=== PATIENT | female | born 1975 | race American Indian/Alaskan Native ===

== ENCOUNTER 2017-09-17 11:15 | Emergency (ER) | payer OTHER ==
[~2017-09-17] VITALS: Ht 149.9 cm; Wt 74.8 kg
[2017-09-17 11:15] VITALS: BP_SYST 146
[2017-09-17] MEDS ORDERED: LIDOCAINE VISCOUS 2%, 15 ML UDC MM ONE (12:00)
[2017-09-17] MEDS ORDERED: PREDNISONE 20 MG TABLET PO ONE (12:15)
[2017-09-17 12:20] VITALS: BP_SYST 128
== END 2017-09-17 12:20 | disposition home or self-care (01) ==
LOC: SED 11:15
DX: J02.8 Acute pharyngitis due to other specified organisms (principal); B97.89 Other viral agents as the cause of diseases classified elsewhere; Z91.040 Latex allergy status
CPT/HCPCS: 36415; 86403; 87081; 99284; J2001; J7512

== ENCOUNTER 2018-07-31 19:46 | Emergency (ER) | payer OTHER ==
[~2018-07-31] VITALS: Ht 152.4 cm; Wt 77.1 kg
[2018-07-31 19:55] VITALS: BP_SYST 138
--- NOTE | 2018-07-31 20:12 | NUR ---
Patient to ER bed 07 to gown for evaluation. Side rails up.
--- NOTE | 2018-07-31 20:14 | NUR ---
Pt AAOx4 ambulated into ED c/o 08/01 acute L pelvic pain radiating to L flank with nausea, cramps, and lightheadedness today. Pt denies taking medication today. Pain is exacerbated when sitting or lying. Pt denies vomiting/diarrhea/dysuria. No other injuries/complaints per pt/noted. Will continue to monitor.
[2018-07-31 20:18] LABS: BILIRUBIN,URINE NEGATIVE (NEGATIVE); BLOOD, URINE NEGATIVE (NEGATIVE); CLARITY/URINE SL CLOUDY (CLEAR); COLOR,URINE YELLOW (YELLOW); GLUCOSE,URINE NEGATIVE (NEGATIVE); KETONES,URINE NEGATIVE (NEGATIVE); LEUKOCYTE ESTERASE ,URINE NEGATIVE (NEGATIVE); NITRITE, URINE NEGATIVE (NEGATIVE); PROTEIN URINE NEGATIVE (NEGATIVE)
[2018-07-31] MEDS ORDERED: NACL 0.9% 1,000 ML IV ONE (20:39)
[2018-07-31] MEDS ORDERED: KETOROLAC TROMETHAMINE 30 MG VIAL IVP ONE (20:45)
[2018-07-31] MEDS ORDERED: ONDANSETRON HCL 4 MG/2 ML VIAL IVP ONE (20:45)
[2018-07-31] MEDS ORDERED: MORPHINE SULFATE 10 MG/ML VIAL IVP ONE (20:45)
--- NOTE | 2018-07-31 21:00 | NUR ---
Medication administered. Pt tolerated well. No adverse reactions noted.
[2018-07-31 21:09] LABS: BASOPHILS # (AUTO) 0.1 K/uL (0.0-0.2); BASOPHILS % (AUTO) 1.2 % (0.0-2.0); EOSINOPHILS # (AUTO) 0.3 K/uL (0.0-0.4); EOSINOPHILS % (AUTO) 3.3 % (0.0-4.0); HEMATOCRIT 46.7 % (36-48); HEMOGLOBIN 14.7 g/dL (12.0-16.0); LYMPHOCYTES # (AUTO) 2.4 K/uL (1.0-5.5); LYMPHOCYTES % (AUTO) 28.2 % (20.5-51.5); MEAN CORPUSCULAR HEMOGLOBIN 29 pg (27-31); MEAN CORPUSCULAR HGB CONC 32 % (32-36); MEAN CORPUSCULAR VOLUME 92 fL (79.0-98.0); MONOCYTES # (AUTO) 0.4 K/uL (0.0-1.0); MONOCYTES % (AUTO) 4.8 % (1.7-9.3); NEUTROPHILS # (AUTO) 5.2 K/uL (1.8-7.7); NEUTROPHILS % (AUTO) 62.5 % (40.0-70.0); PLATELET COUNT (AUTO) 394 K/uL (130-430); RED BLOOD CELL COUNT(AUTO) 5.07 MIL/uL (4.2-6.2); WHITE BLOOD COUNT (AUTO) 8.4 K/uL (4.8-10.8)
[2018-07-31 21:22] LABS: CALCIUM 9.4 mg/dL (8.4-11.0); CREATININE 0.77 mg/dL (0.55-1.30); POTASSIUM 4.1 mmol/L (3.5-5.1)
[2018-07-31 21:27] LABS: ALBUMIN 4.2 g/dL (3.4-4.8); TOTAL BILIRUBIN 0.4 mg/dL (0.0-1.0)
--- NOTE | 2018-07-31 21:29 | NUR ---
Pt returned from radiology via [facility] in stable condition
--- NOTE | 2018-07-31 22:20 | NUR ---
Pt reports 8/10 pain to suprapubic area. Dr. Valdivia notified. Orders to be received.
[2018-07-31] MEDS ORDERED: fentaNYL CITRATE/PF 100 MCG/2 ML AMP IVP ONE (22:30)
--- NOTE | 2018-07-31 22:30 | NUR ---
Fentanyl 100 mcg IVP administered. Pt tolerated well. No adverse reactions noted.
--- NOTE | 2018-07-31 22:42 | NUR ---
Pt taken to radiology via gurney in stable condition
--- NOTE | 2018-07-31 23:00 | NUR ---
Pt returned from radiology via wheelchair in stable condition
--- NOTE | 2018-07-31 23:29 | NUR ---
Pt resting comfortably in bed with no signs of distress.
--- NOTE | 2018-07-31 23:54 | NUR ---
ER Dr. Valdivia at bedside re examining patient.
[2018-08-01 00:42] VITALS: BP_SYST 130
--- NOTE | 2018-08-01 00:42 | NUR ---
Patient given written and verbal discharge instructions and verbalizes understanding. ER MD discussed with patient the results and treatment provided. Patient in stable condition. ID arm band removed. IV catheter removed intact and dressing applied, no active bleeding. Rx of Zofran, Percocet, and Naprosyn given. Patient educated on pain management and to follow up with PMD. Pain Scale 0/10. Opportunity for questions provided and answered. Medication side effect fact sheet provided.
[2018-08-01] MEDS ORDERED: ONDANSETRON 4 MG ODT TAB PO ONE (00:45)
== END 2018-08-01 00:42 | disposition home or self-care (01) ==
LOC: SED 19:46
DX: N85.8 Other specified noninflammatory disorders of uterus (principal); R03.0 Elevated blood-pressure reading, without diagnosis of hypertension; Z91.040 Latex allergy status; Z87.891 Personal history of nicotine dependence
CPT/HCPCS: 36415; 74176; 76830; 76857; 80053; 81003; 81025; 83690; 85025; 96374; 96375; 99285; J1885; J2270; J2405; J3010; J7030; Q0162